=== PATIENT | female | born 1945 | race Caucasian/White ===

== ENCOUNTER 2016-03-04 10:57 | Day surgery (SDC) | payer MEDICARE ==
[~2016-03-04] VITALS: Ht 162.6 cm; Wt 65.3 kg
[~2016-03-04 10:57] MED LIST: 0.9% Sodium Chloride 1,000 ML IV SCH; CHOL10008 PO; MULT-1018 PO; NAPR500T5 PO; Sodium Chloride LOK Flush 10 mL Syringe IV PRN; TRAM50TA2 PO; fentaNYL-PF 50 mCg/mL 2 mL Inj IVPUSH PRN
[2016-03-04 11:31] VITALS: BP 156/69; PULSE 62; RESP 16; O2SAT 100
[2016-03-04 12:44] VITALS: BP 130/58; PULSE 66; RESP 12; O2SAT 98
[2016-03-04 13:01] VITALS: BP 142/61; PULSE 77; RESP 14; O2SAT 99
--- NOTE | 2016-03-04 13:43 | ENDO ---
[address] [address] ENDOSCOPY PROCEDURE PATIENT: DEISY LERMA : 1945 MR#: [id number] ADMIT: 03/04/2016 JOB ID: [id number] DATE: 03/04/2016 PROCEDURE: Colonoscopy. INDICATIONS: Screening. The patient's ASA classification is 2. Mallampati score is 2. MEDICATIONS: 1. Versed 7 mg. 2. Fentanyl 100 mcg. INSTRUMENT USED: PCF H 180 AL. PREPARATION QUALITY: Was poor. PROCEDURE DETAILS: After informed consent was obtained, the patient was brought into the GI suite, where she was placed on oxygen via nasal cannula and monitored with continuous pulse oximeter, telemetry, and blood pressure monitoring. A time-out was performed. Then, she was placed in the left lateral decubitus position and medications were administered for sedation. Digital rectal examination was performed and was unremarkable. The colonoscope was then inserted into the rectum and advanced to the cecum, which was identified by the presence of the ileocecal valve. I was unable to identify the appendiceal orifice secondary to poor prep of the colon. Despite irrigation, there was still adherent layer of stool on the mucosa. Therefore, views of the colon were suboptimal. The colonoscope was then withdrawn back into the rectum, retroflexion was performed in the rectum which was unremarkable. The remaining air in the rectum was suctioned, and the procedure was completed. FINDINGS: Poor prep. RECOMMENDATIONS: Repeat colonoscopy with a two day prep. COMPLICATIONS: None. ESTIMATED BLOOD LOSS: 0.
== END 2016-03-04 23:59 | disposition home or self-care (01) ==
LOC: END 10:57
PROVIDERS: ATTEND Internal Medicine Gastroenterology
DX: Z12.11 Encounter for screening for malignant neoplasm of colon (principal); Z86.010 Personal history of colon polyps
CPT/HCPCS: G0105; G0500; J2250; J7030

== ENCOUNTER 2016-03-05 11:12 | Day surgery (SDC) | payer MEDICARE ==
[~2016-03-05] VITALS: Ht 162.6 cm; Wt 64.4 kg
[2016-03-05 11:38] VITALS: BP 128/59; PULSE 67; RESP 14; O2SAT 99
[2016-03-05 12:48] VITALS: BP 116/60; PULSE 68; RESP 16; O2SAT 99
[2016-03-05 12:58] VITALS: BP 121/61; PULSE 72; RESP 12; O2SAT 98
[2016-03-05 13:08] VITALS: BP 107/70; PULSE 71; RESP 14; O2SAT 100
[2016-03-05 13:18] VITALS: BP 121/49; PULSE 70; RESP 14; O2SAT 100
--- NOTE | 2016-03-05 14:15 | ENDO ---
[address] [address] ENDOSCOPY PROCEDURE PATIENT: DEISY LERMA : 1945 MR#: [id number] ADMIT: 03/05/2016 JOB ID: [id number] PROCEDURE: Colonoscopy. INDICATION: Screening. ANESTHESIA: Patient's ASA classification is one. Mallampati score is two. MEDICATIONS: 1. Versed 6 mg. 2. Fentanyl 100 mcg. INSTRUMENT USED: PCF H 180 AL. PREPARATION QUALITY: Good. PROCEDURE IN DETAIL: After informed consent was obtained, the patient was brought into the GI suite, where she was placed on oxygen via nasal cannula and monitored with continuous pulse oximeter, telemetry, and blood pressure monitoring. A time-out was performed, then she was placed in the left lateral decubitus position and medications were administered for sedation. A digital rectal exam was performed unremarkable. The colonoscope was then inserted into the rectum and advanced under direct visualization to the cecum, which was identified by the presence of the ileocecal valve and appendiceal orifice. Once the cecum was reached, the colonoscope was withdrawn back into the rectum as the mucosa and lumen were examined. In the rectum, retroflexion was performed. Following retroflexion, the remaining air in the rectum was suctioned and the procedure was completed. FINDINGS: 1. In the cecum there was an approximately 4-5 mm sessile polyp that was removed with a cold snare. 2. In the ascending colon, there was a diminutive polyp that was removed with cold biopsy forceps. 3. In the transverse colon, there was a diminutive polyp that was removed with cold biopsy forceps. 4. In the rectum, there was a linear area of focal erythema. Under narrow band imaging it did not appear to be adenomatous. The area measured approximately 4 mm in length and 3-4 mm in width. The area was completely removed with cold biopsy forceps. 5. Scattered diverticula were seen throughout the left side of the colon. 6. Retroflexed views in the rectum were unremarkable. IMPRESSION: 1. Cecal polyp. 2. Ascending colon polyp. 3. Transverse colon polyp. 4. Left-sided diverticulosis. 5. Focal linear area of erythema on the rectum. RECOMMENDATIONS: 1. Await polyp pathology results and biopsy results. 2. Fiber rich diet. 3. Follow up in GI clinic as needed. COMPLICATIONS: None. ESTIMATED BLOOD LOSS: Less than 5 mL.
--- NOTE | 2016-03-08 15:00 | PATH ---
SURGICAL PATHOLOGY Attending Physician:Jayson Leavitt CASE STATUS: Signed Out PATIENT NAME: DEISY LERMA PID: [id number] : 1945 DATE COLLECTED:03/05/2016 20:03 SPECIMEN: 1: Colon, Biopsy 2: Colon, Biopsy 3: Colon, Biopsy 4: Rectum, Biopsy CLINICAL HISTORY: 1). CECAL POLYP X1 2). ASCENDING POLYP X1 3). TRANSVERSE POLYP X1 4). RECTAL ERYTHEMA BIOPSY FINAL DIAGNOSIS: 1.CECAL POLYP: TUBULAR ADENOMA INVOLVING TWO BIOPSY FRAGMENTS. 2.ASCENDING COLON POLYP: TUBULAR ADENOMA. 3.TRANSVERSE COLON POLYP: TUBULAR ADENOMA, CHRONICALLY INFLAMED. 4.RECTAL ERYTHEMA BIOPSY: SUPERFICIAL CHRONIC ACTIVE PROCTITIS WITH REACTIVE EPITHELIAL CHANGES. Negative for dysplasia and malignancy. ICD10 code D12.0 GROSS DESCRIPTION: The specimen is received in four formalin filled containers labeled with the patient's name. 1). The specimen is sublabeled "cecal polyps" and consists of 4 portions of tissue which aggregate to 0.3 x 0.3 x 0.2 CM. The specimen is entirely submitted in cassette 1A. 2). The specimen is sublabeled "ascending polyp" and consists of a 0.4 x 0.3 x 0.2 CM portion of tissue which is entirely submitted in cassette 2A. 3). The specimen is sublabeled "transverse polyp" and consists of a 0.2 x 0.2 x 0.2 CM portion of tissue which is entirely submitted in cassette 3A. 4). The specimen is sublabeled "rectal erythremia" and consists of 3 portions of tissue which aggregate to 0.4 x 0.4 x 0.3 CM. The specimen is entirely submitted in cassette 4A. 03/05/2016 [facility] MICRO DESCRIPTION: See diagnosis. ICD-9 CODES: CPT CODES: 1: 58329 2: 48563 3: 18402 4: 55166 Electronically Signed Out Cleveland Victor MD [facility] [address], [place] [address] Technical component performed at [facility], [facility] [address], [place], [address]
== END 2016-03-05 23:59 | disposition home or self-care (01) ==
LOC: END 11:12
PROVIDERS: ATTEND Internal Medicine Gastroenterology
DX: Z12.11 Encounter for screening for malignant neoplasm of colon (principal); D12.0 Benign neoplasm of cecum; D12.2 Benign neoplasm of ascending colon; D12.3 Benign neoplasm of transverse colon; K57.30 Diverticulosis of large intestine without perforation or abscess without bleeding; Z86.010 Personal history of colon polyps; Z79.899 Other long term (current) drug therapy; K62.89 Other specified diseases of anus and rectum
CPT/HCPCS: 45380; 45385; J2250; J7030